=== PATIENT | female | born 1985 | race Caucasian/White ===

== ENCOUNTER → 2018-07-17 | Outpatient (CLI) | payer BC ==
[2018-07-17 10:32] LABS: ALBUMIN 4.9 g/dL (3.5-5.0); CALCIUM 9.8 mg/dL (8.4-10.2); TOTAL BILIRUBIN 1.3 mg/dL (0.2-1.3); TOTAL PROTEIN 8.4 g/dL (6.3-8.2)
[2018-07-17 10:41] LABS: EOS # 0.4 (0.04-0.40); EOS % 4.6 % (1.0-5.0); HEMATOCRIT 46.2 % (37.0-47.0); LYMPH# 1.9 (1.50-4.00); MEAN CELL VOLUME 96 fl (78-100); MEAN CORPUSCULAR HEMOGLOBIN 31 pg (27-31); MEAN CORPUSCULAR HGB CONC 33 g/dL (33-37); MONO # 0.6 (0.20-0.80); NEU # 5.5 (1.40-6.50); PLATELET COUNT 314 K/mm3 (130-400); RED BLOOD COUNT 4.84 M/mm3 (4.10-5.30); RED CELL DISTRIBUTION WIDTH 12.2 % (11.5-14.5); WHITE BLOOD COUNT 8.5 K/mm3 (4.8-10.8)
[2018-07-17 12:12] LABS: ERYTHROCYTE SEDIMENTATION RATE 5 mm/hr (0-20)
[2018-07-17 19:50] LABS: C-REACTIVE PROTEIN XXX
[2018-07-18 22:58] LABS: ANA SCREEN with REFLEX Negative (Negative)
== END ==
LOC: LAB 09:30
PROVIDERS: Family Medicine
DX: Z01.419 Encounter for gynecological examination (general) (routine) without abnormal findings (principal); E03.9 Hypothyroidism, unspecified; E28.2 Polycystic ovarian syndrome; E11.9 Type 2 diabetes mellitus without complications; D89.89 Other specified disorders involving the immune mechanism, not elsewhere classified

== ENCOUNTER → 2018-07-24 | Outpatient (CLI) | payer BC ==
[2018-07-26 15:38] LABS: ANTI-SMOOTH MUSCLE ANTIBODY Negative (Negative)
== END ==
LOC: LAB 16:42
PROVIDERS: Family Medicine
DX: M35.9 Systemic involvement of connective tissue, unspecified (principal); I73.00 Raynaud's syndrome without gangrene

== ENCOUNTER → 2019-11-01 | Outpatient (CLI) | payer BC ==
[2019-11-01 10:59] LABS: HEMATOCRIT 46.3 % (37.0-47.0); HEMOGLOBIN 14.9 g/dL (12.5-16.0); MEAN CELL VOLUME 96 fl (78-100); MEAN CORPUSCULAR HEMOGLOBIN 31 pg (27-31); MEAN CORPUSCULAR HGB CONC 32 g/dL (33-37); MEAN PLATELET VOLUME 8.6 fl (7.4-10.4); PLATELET COUNT 296 K/mm3 (130-400); RED BLOOD COUNT 4.83 M/mm3 (4.10-5.30); RED CELL DISTRIBUTION WIDTH 13.4 % (11.5-14.5); WHITE BLOOD COUNT 6.9 K/mm3 (4.8-10.8)
[2019-11-01 11:09] LABS: ALBUMIN 3.9 g/dL (3.5-5.0); POTASSIUM 5.1 mmol/L (3.5-5.1)
[2019-11-01 11:10] LABS: CALCIUM 8.8 mg/dL (8.3-10.5)
[2019-11-01 11:11] LABS: TOTAL PROTEIN 7.9 g/dL (6.4-8.3)
[2019-11-01 11:13] LABS: TOTAL BILIRUBIN 0.8 mg/dL (0.2-1.2)
[2019-11-01 11:59] LABS: LYMPHOCYTE 69 % (20-51); MONOCYTE 9 % (3-10); NEUTROPHILS 21 % (42-75)
[2019-11-01 12:05] LABS: ERYTHROCYTE SEDIMENTATION RATE 10 mm/hr (0-20)
[2019-11-04 23:57] LABS: HEPATITIS C ANTIBODY Negative (Negative)
== END ==
LOC: LAB 10:40
PROVIDERS: Family Medicine
DX: D89.89 Other specified disorders involving the immune mechanism, not elsewhere classified (principal); R94.5 Abnormal results of liver function studies; A08.4 Viral intestinal infection, unspecified

== ENCOUNTER → 2019-11-07 | Outpatient (CLI) | payer BC | LOC: RAD 08:00 | DX: R94.5 Abnormal results of liver function studies (principal) ==

== ENCOUNTER → 2020-01-10 | Outpatient (CLI) | payer BC ==
[2020-01-10 16:27] LABS: ALBUMIN 4.4 g/dL (3.5-5.0)
[2020-01-10 16:28] LABS: POTASSIUM 4.4 mmol/L (3.5-5.1)
[2020-01-10 16:29] LABS: CALCIUM 9.5 mg/dL (8.3-10.5)
[2020-01-10 16:30] LABS: TOTAL PROTEIN 7.6 g/dL (6.4-8.3)
[2020-01-10 16:32] LABS: TOTAL BILIRUBIN 0.9 mg/dL (0.2-1.2)
== END ==
LOC: LAB 16:00
PROVIDERS: Physician Assistant
DX: Z00.00 Encounter for general adult medical examination without abnormal findings (principal); Z23 Encounter for immunization; R79.89 Other specified abnormal findings of blood chemistry; L30.9 Dermatitis, unspecified; E28.2 Polycystic ovarian syndrome; F90.9 Attention-deficit hyperactivity disorder, unspecified type

== ENCOUNTER → 2021-11-05 | Outpatient (CLI) | payer BC ==
[2021-11-05 17:00] LABS: BASO # 0.02 K/mm3 (0.02-0.10); EOS # 0.28 K/mm3 (0.04-0.40); EOS % 2.9 % (1.0-5.0); HEMATOCRIT 45.1 % (37.0-47.0); HEMOGLOBIN 15.1 g/dL (12.5-16.0); LYMPH# 2.44 K/mm3 (1.50-4.00); MEAN CELL VOLUME 90 fl (78-100); MEAN CORPUSCULAR HEMOGLOBIN 30 pg (27-31); MEAN CORPUSCULAR HGB CONC 34 g/dL (33-37); MEAN PLATELET VOLUME 8.9 fl (7.4-10.4); MONO # 0.65 K/mm3 (0.20-0.80); NEU # 6.39 K/mm3 (1.40-6.50); PLATELET COUNT 276 K/mm3 (130-400); RED BLOOD COUNT 4.99 M/mm3 (4.10-5.30); RED CELL DISTRIBUTION WIDTH 11.7 % (11.5-14.5); WHITE BLOOD COUNT 9.8 K/mm3 (4.8-10.8)
[2021-11-10 06:17] LABS: ALTERNARIA TENUIS CNT <0.10 kU/L (()); ASPERGILLUS FUMIGATUS AL COUNT <0.10 kU/L (()); CAT DANDER ALLERGEN COUNT 2.26 kU/L (()); CLADOSPORIUM ALLERGEN COUNT <0.10 kU/L (()); COCKROACH ALLERGEN COUNT 0.16 kU/L (()); COTTONWOOD TREE ALLERGEN COUNT 0.16 kU/L (()); DOG DANDER ALLERGEN COUNT 5.78 kU/L (()); ELM TREE ALLERGEN COUNT 0.23 kU/L (()); FIREBUSH ALLERGEN COUNT <0.10 kU/L (()); RUSSIAN THISTLE ALLERGEN COUNT <0.10 kU/L (())
[2021-11-10 06:18] LABS: OAK ALLERGEN COUNT 0.18 kU/L (()); ROUGH MARSH ELDER ALLERG COUNT <0.10 kU/L (())
[2021-11-13 08:42] LABS: BAKERS YEAST ALLERGEN COUNT <0.10 kU/L (()); CORN ALLERGEN COUNT <0.10 kU/L (()); EGG WHITE ALLERGEN COUNT <0.10 kU/L (()); MILK ALLERGEN COUNT 1.21 kU/L (()); ORANGE ALLERGEN COUNT <0.10 kU/L (()); PEANUT ALLERGEN COUNT <0.10 kU/L (()); RICE ALLERGEN COUNT <0.10 kU/L (()); SOYBEAN ALLERGEN COUNT <0.10 kU/L (()); STRAWBERRY ALLERGEN COUNT <0.10 kU/L (()); TOMATO ALLERGEN COUNT <0.10 kU/L (()); WHEAT ALLERGEN COUNT 0.12 kU/L (())
== END ==
LOC: LAB 16:33
PROVIDERS: Family Medicine
DX: N83.209 Unspecified ovarian cyst, unspecified side (principal); K25.7 Chronic gastric ulcer without hemorrhage or perforation; J30.9 Allergic rhinitis, unspecified; N91.1 Secondary amenorrhea; B00.1 Herpesviral vesicular dermatitis; H91.91 Unspecified hearing loss, right ear; M54.50 Low back pain, unspecified; E88.81 Metabolic syndrome and other insulin resistance; E66.9 Obesity, unspecified; F90.9 Attention-deficit hyperactivity disorder, unspecified type; Z72.0 Tobacco use